=== PATIENT | male | born 1995 | race African-American/Black ===

== ENCOUNTER 2017-11-13 14:26 | Emergency (ER) | payer SELFPAY ==
[~2017-11-13] VITALS: Ht 170.2 cm; Wt 65.8 kg
[~2017-11-13 14:26] MED LIST: ALBU17AE26 IH; IBUPROFEN
[2017-11-13 14:33] VITALS: BP_SYST 114
[2017-11-13] MEDS ORDERED: DEXAMETHASONE SOD PHOSPHATE 10 MG/ML VIAL IM ONE (14:45)
[2017-11-13] MEDS ORDERED: KETOROLAC TROMETHAMINE 30 MG VIAL IM ONE (14:45)
[2017-11-13 15:18] VITALS: BP_SYST 114
== END 2017-11-13 15:18 | disposition home or self-care (01) ==
LOC: SED 14:26
DX: J02.9 Acute pharyngitis, unspecified (principal); J45.909 Unspecified asthma, uncomplicated; F12.10 Cannabis abuse, uncomplicated
CPT/HCPCS: 36415; 86403; 87081; 96372; 99284; J1100; J1885

== ENCOUNTER 2019-01-28 09:53 | Emergency (ER) | payer MEDICAID ==
[~2019-01-28] VITALS: Ht 170.2 cm; Wt 72.6 kg
[2019-01-28 10:23] VITALS: BP_SYST 106
--- NOTE | 2019-01-28 12:55 | NUR ---
Patient to ER bed 4 to gown for evaluation. Side rails up. Report given to ERNESTINA CALIX.
--- NOTE | 2019-01-28 12:56 | NUR ---
Patient is awake, alert, and oriented x4. Patient is complaining of sore throat, he states that he has a history of tonsilitis and that he caught it early. Patient presents with sore throat 9/10, white spots on tonsils, trouble swallowing.
--- NOTE | 2019-01-28 13:00 | NUR ---
ER Dr. Arrington at bedside examining patient.
[2019-01-28 13:58] VITALS: BP_SYST 106
--- NOTE | 2019-01-28 13:58 | NUR ---
Patient given written and verbal discharge instructions and verbalizes understanding. ER MD discussed with patient the results and treatment provided. Patient in stable condition. ID arm band removed. Rx of azithromycin given. Patient educated on pain management and to follow up with PMD. Pain Scale 0/10. Opportunity for questions provided and answered. Medication side effect fact sheet provided.
--- NOTE | 2019-01-28 13:58 | NUR ---
Lili palomo in ED - 01/28/19 at 1359 by RAIZA CRISTIAN Arrington at bedside examining patient.
== END 2019-01-28 13:58 | disposition home or self-care (01) ==
LOC: SED 09:53
DX: J02.9 Acute pharyngitis, unspecified (principal); J45.909 Unspecified asthma, uncomplicated; Z88.1 Allergy status to other antibiotic agents
CPT/HCPCS: 36415; 86403; 87081; 99283

== ENCOUNTER 2020-08-05 10:33 | Emergency (ER) | payer MEDICAID, OTHER ==
[~2020-08-05] VITALS: Ht 170.2 cm; Wt 70.3 kg
[2020-08-05 10:33] VITALS: BP_SYST 104
[2020-08-05] MEDS ORDERED: IBUP-1969 PO (11:01)
[2020-08-05 11:15] VITALS: BP_SYST 104
== END 2020-08-05 11:15 | disposition home or self-care (01) ==
LOC: SED 10:33
DX: J02.8 Acute pharyngitis due to other specified organisms (principal); B97.89 Other viral agents as the cause of diseases classified elsewhere; J45.909 Unspecified asthma, uncomplicated; Z88.0 Allergy status to penicillin; Z79.899 Other long term (current) drug therapy
CPT/HCPCS: 99282

== ENCOUNTER 2020-09-01 12:55 | Emergency (ER) | payer OTHER ==
[~2020-09-01] VITALS: Ht 170.2 cm; Wt 72.6 kg
[~2020-09-01 12:55] MED LIST changes: +IBUP-1969 PO
[2020-09-01 13:08] VITALS: BP_SYST 117
[2020-09-01] MEDS ORDERED: DIPH-TET-PERTUS Vaccine 0.5 ML VIAL (ADACEL) I.M. ONE (13:15)
[2020-09-01] MEDS ORDERED: INSULIN Lispro 100 UNITS/ML VIAL (humaLOG) ONE (13:23)
[2020-09-01 13:29] VITALS: BP_SYST 121
[2020-09-01] MEDS ORDERED: CIPR500T5 PO (13:29)
[2020-09-01] MEDS ORDERED: ACET325C5 PO (13:31)
[2020-09-01] MEDS ORDERED: IBUPROFEN 400 MG TABLET PO ONE (13:45)
[2020-09-01] MEDS ORDERED: ACETAMINOPHEN 325 MG TABLET PO ONE (13:45)
== END 2020-09-01 13:53 | disposition home or self-care (01) ==
LOC: SED 12:55
DX: S91.331A Puncture wound without foreign body, right foot, initial encounter (principal); J45.909 Unspecified asthma, uncomplicated; Z79.899 Other long term (current) drug therapy; Z88.0 Allergy status to penicillin; W45.0XXA Nail entering through skin, initial encounter; Y93.89 Activity, other specified; Y92.89 Other specified places as the place of occurrence of the external cause; Y99.8 Other external cause status
CPT/HCPCS: 90715; 99283